=== PATIENT | male | born 1950 | race African-American/Black ===

== ENCOUNTER 2019-02-13 01:20 | Inpatient (IN) ==
[2019-02-13] MEDS ORDERED: PROPOFOL 1,000 MG/100 ML BOTTLE IV ONE (01:24)
[2019-02-13] MEDS ORDERED: NOREPINEPHRINE 4 MG/4 ML VIAL IV ONE (01:24)
[2019-02-13] MEDS ORDERED: NOREPINEPHRINE 8 MG in SODIUM CHLORIDE 0.9% 242 ML IV PRN (01:30)
[2019-02-13] MEDS ORDERED: LACTATED RINGERS 1,000 ML IV ONE (01:33)
[2019-02-13] MEDS ORDERED: PROPOFOL 1,000 MG/100 ML BOTTLE IV SCH (02:00)
[2019-02-13 02:12] LABS: Amorphous Crystals,Urine Occasional /HPF (Few); Apearance,Urine CLOUDY (Clear); Bilirubin,Urine Negative (Negative); Blood, Urine Moderate mg/dL (Negative); Glucose,Urine (UA) 50 mg/dL (Negative); Ketones,Urine 20 mg/dL (Negative); Mucus,Urine Few /LPF (Occasional); Nitrite,Urine Negative (Negative); Protein,Urine 100 MG/DL; RBC,Urine 8 /HPF (0-4); Squamous Epithelial Cell,Urine Occasional /HPF (0-10); Urine Color Amber (Yellow); Urine Specific Gravity 1.011 (1.001-1.035); WBC,Urine 3 /HPF (0-6)
[2019-02-13 02:26] LABS: ABG Base Excess -20.7 MMOL/L (-2.5-2.5); ABG HCO3 8.9 MMOL/L (20-26); ABG Oxygen Saturation 95.8 % (95-100); ABG PCO2 42.7 MM HG (35-48); Allen Test Positive; Pt O2 Delivery Device Ventilator
[2019-02-13 02:28] LABS: ABG PH 6.967 (7.35-7.45)
[2019-02-13] MEDS ORDERED: SODIUM BICARB INJ 150 MEQ in DEXTROSE 5% 850 ML IV SCH (03:00)
[2019-02-13] MEDS ORDERED: ALBUTEROL 2.5 MG/3 ML NEB RESP TX PRN (03:13)
[2019-02-13] MEDS ORDERED: LORazepam 2 MG/1 ML VIAL IV PRN (03:17)
[2019-02-13] MEDS ORDERED: LORazepam 1 MG TABLET PO PRN (03:17)
[2019-02-13 03:21] LABS: Albumin 1.9 G/DL (3.4-5.0); Calcium 6.7 MG/DL (8.5-10.1); Osmolality,Calculated 313.4 MOS/KG (273-304); Total Protein 6.6 G/DL (6.4-8.3)
[2019-02-13 03:32] LABS: Basophils % 0.1 % (0.0-0.8); Eosinophils % 0.1 % (0.00-10.9); Hematocrit 21.6 VOL% (42.0-52.0); Immature Granulocytes % 6.6 %; Immature Granulocytes Absolute 0.53 #; Lymphocytes # 0.5 10*3/uL (1.4-4.0); Lymphocytes % 5.8 % (21.2-54.2); Mean Corpuscular HGB Conc 29.6 GM/DL (32-36); Mean Corpuscular Volume 101.9 FL (87-102); Mean Platelet Volume 10.6 FL (9.6-12.0); Monocytes % 3.5 % (1.7-12.7); NRBC # 0.54 10*3/uL; Neutrophils % 83.9 % (38.7-73.9); Platelet Count 175 T/CUMM (130-400); Red Blood Count 2.12 MC/CUMM (3.8-5.5); Red Cell Distribution Width 19.2 % (9.3-17.3)
[2019-02-13 03:36] LABS: Hemoglobin 6.4 GM/DL (14.0-18.0)
[2019-02-13 03:40] LABS: INR 1.5; PT Patient Result 16.1 SECS (9.6-12.2)
[2019-02-13 04:01] LABS: Band Neutrophils 8 % (0-10); Lymphocytes 8 % (20-55); Metamyelocytes 1 %; Myelocytes 2 %; Nucleated Red Blood Cells 18 (0-5); Segmented Neutrophils 79 % (50-85); Total Cells Counted 100
[2019-02-13 04:02] LABS: Platelet Estimate Normal
[2019-02-13 04:03] LABS: Anisocytosis 1+; Stomatocytes Few; Target Cells Few
[2019-02-13 04:04] LABS: Macrocytosis Slight
[2019-02-13] MEDS ORDERED: MORPHINE 4 MG/1 ML VIAL IV PRN (04:37)
[2019-02-13 05:20] LABS: Barbiturates Screen,Urine Negative (Negative); Benzodiazepines Screen,Urine Negative (Negative); Cannabinoid Screen,Urine Negative (Negative); Opiate Screen,Urine Negative (Negative); Phencyclidine Screen,Urine Negative (Negative)
[2019-02-13 06:07] VITALS: BP 93/61
== END 2019-02-13 09:38 | disposition expired | DRG 296 ==
LOC: N.ED 01:20 → N.EDINP 03:13 → N.CC 03:47
PROVIDERS: ADMIT Family Medicine; ATTEND Family Medicine